=== PATIENT | female | born 1955 | race African-American/Black ===

== ENCOUNTER 2020-02-09 07:26 | Outpatient (CLI) | payer MEDICARE, SELFPAY ==
--- NOTE | ~2020-02-09 | MM_ITS ---
EXAMINATION: MM screening carlo BI w jc HISTORY: Screening TECHNIQUE: Craniocaudal and mediolateral oblique 3-D tomosynthesis images were obtained and synthetic 2-D images were generated. CAD analysis was submitted and interpreted. COMPARISON: Comparison to multiple prior studies sequentially, with oldest reviewed study dated 01/10. BREAST PARENCHYMAL COMPOSITION: There are scattered areas of fibroglandular density. FINDINGS: There is no evidence of suspicious mass, calcification, or architectural distortion to sugg est malignancy in either breast. There has been no suspicious interval change. IMPRESSION: 1. No mammographic evidence of malignancy. 2. Recommend routine screening mammography in one year. BI-RADS Category 1: Negative Reviewed, dictated and finalized at location A.
--- NOTE | ~2020-02-09 | DEXA_ITS ---
Bone Density Report Name: Kailyn Funes Age: 64 Sex: Female Ethnicity: Black Date of : 1955 Indication: postmenopausal; height loss; hysterectomy; Referring Provider: BILLIE FARRELL Study: Bone densitometry was performed. Exam Date: February 09, 2020 Accession number: [id number] Bone Density: Region BMD T-score Z-score Classification AP Spine (L1-L4) 1.090 0.4 1.5 Normal Femoral Neck (Left) 0.980 1.2 1.5 Normal Total Hip (Left) 1.030 0.7 1.0 Normal Total Hip Bilateral Avg 1.068 1.0 1.3 Normal Femoral Neck (Right) 1.059 1.9 2.1 Normal Total Hip (Right) 1.106 1.3 1.5 Normal World Health Organization criteria for BMD impression classify patients as: Normal (T-score at or above -1.0), Osteopenia (T-score between -1.0 and -2.5), or Osteoporosis (T-score at or below -2.5). 10-year Fracture Risk: FRAX not reported because: All T-scores for Spine Total, Hip Total, Femoral Neck at or above -1.0 Previous Exams: Region Exam Age BMD T-score BMD Change BMD Change Date g/cm2 vs Baseline vs Previous AP Spine(L1-L4) 02/09/2020 64 1.090 0.4 -0.021(-1.9%)# -0.071(-6.1%)* 01/10/2015 59 1.161 1.0 0.049(4.4%)# 0.049(4.4%)# 11/17/2008 53 1.111 0.6 Total Hip(Left) 02/09/2020 64 1.030 0.7 0.080(8.4%)# 0.018(1.8%) 01/10/2015 59 1.012 0.6 0.062(6.5%)# 0.062(6.5%)# 11/17/2008 53 0.950 0.1 Total Hip(Right) 02/09/2020 64 1.106 1.3 0.136(14.0%)# 0.041(3.9%)* 01/10/2015 59 1.064 1.0 0.095(9.8%)# 0.095(9.8%)# 11/17/2008 53 0.970 0.2 *Denotes significance at 95% confidence level, LSC for AP Spine = 0.022 g/cm2, LSC for Total Hip = 0.027 g/cm2 Clinical Information Provided by Patient: Has used the following medications: Vitamin D Has the following medical conditions: Hysterectomy Patient maximum height was 69 Menopause Age: 29 Drinks caffeinated beverages Onset of menses at age 9 Number of children 3 Impression: The patient has normal bone mass. The BMD for the AP Spine(L1-L4) decreased, changing by -6.1% since the last DXA exam. Discussion: BONE DENSITY IS ABOVE THE MINIMUM DESIRABLE LEVEL AT ALL SKELETAL SITES TESTED. This patient?s bone mineral density is above the minimum desirable level (T-score -1.0 or better) at all sites measured. The patient should follow a healthful lifestyle (good nutrition with adequate calcium and vitamin D, and appropriate weight-bearing exercise). Donita
== END 2020-02-09 07:27 | disposition home or self-care (01) ==
PROVIDERS: PCP Nurse Practitioner Adult Health; Visit Provider Obstetrics & Gynecology
DX: Z12.31 Encounter for screening mammogram for malignant neoplasm of breast (principal); Z13.820 Encounter for screening for osteoporosis
CPT/HCPCS: 77063; 77067; 77080

== ENCOUNTER 2020-03-19 08:19 | Outpatient (CLI) | payer MEDICARE, SELFPAY ==
--- NOTE | 2020-03-22 12:23 | WPDPFTINT ---
PFT Interpretation PFT Interpretation: DOS: 03/19/2020 REQUESTING: Dr. Banuelos REASON FOR TESTING: restrictive lung disease, decreased diffusion PULMONARY FUNCTION TESTS Results are reliable and reproducible. Spirometry: FEV1 is 73%< mildly decreased, FVC 66% mildly reduced. FEV1% is normal showing no obstruction. No change with bronchodilator. Lung volumes: TLC 66%, mildly decreased, consistent with mild restriction. RV is 65%, and RV/TLC is normal. No air trapping. Airway resistance is 134%. mildly increased. Diffusion: DLCO 56%, moderately decreased. Flow volume loop: Restrictive pattern. IMPRESSION: Mild restrictive ventilatory impairment with moderate diffusion impairment. No obstruction is noted. This can be seen in ILD and pneumonitis. Results are similar to PFT on 12/29/2017 with this test showing no obstruction. TLC was 72%, now 66%, air trapping was present on the previous test with more airway resistance. Same DLCO. Nahomy Banuelos MD
--- NOTE | 2020-03-22 12:41 | WPDSIXMINUTE ---
Six Minute Walk Six Minute Walk: DOS: 03/19/2020 REQUESTING: Dr Banuelos REASON FOR TESTING: Restrictive lung disease and decreased diffusion SIX MINUTE WALK This test was conducted per ATS guidelines. The initial saturation was was 96%, pulse 70. She walked for 6 minutes without stopping with saturation sustained 95% and above. Distance walked is 1100 feet/335 meters. Pulse maximum is 88. IMPRESSION: Normal walk study without desaturation. No need for supplemental oxygen.
== END 2020-03-19 08:20 | disposition home or self-care (01) ==
PROVIDERS: PCP Nurse Practitioner Adult Health; Visit Provider Internal Medicine Critical Care Medicine
DX: J98.4 Other disorders of lung (principal); R94.2 Abnormal results of pulmonary function studies
CPT/HCPCS: 94060; 94618; 94726; 94729

== ENCOUNTER 2020-04-01 06:51 | Outpatient (CLI) | payer MEDICARE, SELFPAY ==
--- NOTE | ~2020-04-01 | CT_ITS ---
EXAMINATION: CT chest high resolution wo ms DATE: 04/01/2020 07:11 INDICATION: Interstitial lung disease TECHNIQUE: Computed tomography (CT) of the chest was performed without intravenous contrast. The dose -length product was 291.17 mGy-cm. Automated exposure control and iterative reconstruction technique were employed. COMPARISON: CT dated 09/29/2012 FINDINGS: No significant pleural or pericardial effusion. There are calcified mediastinal lymph nodes consistent with chronic granulomatous disease. Heart size normal. Small hyperdense cyst of the right kidney. Otherwise, upper abdomen is unremarkable. Blebs are noted in the right lower lobe. No pneumo thorax. No pulmonary nodules or masses. No focal airspace consolidation. Calcified granuloma in the l ingula. No endobronchial lesions. No acute osseous abnormality. IMPRESSION: 1. No acute cardiopulmonary disease. No significant interstitial lung disease. Reviewed, dictated and finalized at location B.
== END 2020-04-01 06:52 | disposition home or self-care (01) ==
PROVIDERS: PCP Nurse Practitioner Adult Health; Visit Provider Internal Medicine Critical Care Medicine
DX: R94.2 Abnormal results of pulmonary function studies (principal); J98.4 Other disorders of lung
CPT/HCPCS: 71250

== ENCOUNTER 2020-11-17 13:28 | Emergency (ER) | payer MEDICARE, SELFPAY ==
--- NOTE | ~2020-11-17 | XR_ITS ---
XR chest 2V DATE: 11/17/2020 14:09 INDICATION: Chest pain, shortness of breath TECHNIQUE: PA and lateral views COMPARISON: 06/14/2015 2 view chest FINDINGS: There is cardiomegaly. There is mild aortic unfolding. No hilar or mediastinal enlargement. No pulmonary infiltrate or consolidation, pleural effusion or pulmonary vascular congestion or pneum othorax. IMPRESSION: Cardiomegaly No active pulmonary disease Reviewed, dictated and finalized at location A.
--- NOTE | ~2020-11-17 | CT_ITS ---
EXAMINATION: CTA chest PE protocol DATE: 11/17/2020 15:44 INDICATION: Shortness of breath. Left-sided chest pain. TECHNIQUE: Computed tomography (CT) pulmonary angiogram of the chest was performed with 100 mL Omnipa que-350 intravenous contrast. Additional 3D reconstructions utilizing coronal maximum intensity proje ction (MIP) were performed. Automated exposure control and iterative reconstruction technique were em ployed. The dose-length product was 623.15 mGy-cm. COMPARISON: None FINDINGS: Excellent contrast opacification of the pulmonary arteries. There is mild streak artifact from dense contrast in the superior vena cava and right atrium. Mild scattered respiratory motion artifact which does not significantly limit evaluation. No pulmonary embolism. Large pneumatocele in the right lowe r lobe. No pneumonia, pulmonary edema or other pulmonary infiltrates, pleural effusion or pneumothora x. Heart size is normal. No pericardial effusion. Thoracic aorta is normal in caliber with no dissect ion. There is reflux contrast in the inferior vena cava and hepatic veins which can be seen with tric uspid regurgitation. No pathologically enlarged thoracic lymphadenopathy. Mild osteoarthritis at the bilateral shoulders. IMPRESSION: 1. No pulmonary embolism or other acute cardiopulmonary disease. Reviewed, dictated and finalized at location A.
--- NOTE | 2020-11-17 13:30 | ECG_ITS ---
Measurements Intervals [place] Rate: 70 P: -37 FL: 139 QRS: -15 QRSD: 97 T: -48 QT: 410 QTc: 444 Interpretive Statements SINUS OR ECTOPIC ATRIAL RHYTHM VENTRICULAR PREMATURE COMPLEX INCOMPLETE RIGHT BUNDLE BRANCH BLOCK VOLTAGE CRITERIA FOR LVH BORDERLINE ST-T WAVE ABNORMALITY- ANTEROLAT/INF LEADS BASELINE WANDER- I, II, III, AVR, AVL, AVF, V1-V6 BORDERLINE ECG Electronically Signed On 11-17-2020 19:19:48 CDT by Piero Kaur D.O.
[2020-11-17 13:33] VITALS: BP 192/100; PULSE 69; RESP 19; TEMP 36.6; O2SAT 100
[2020-11-17 13:36] VITALS: PULSE 72; RESP 20; O2SAT 100
[2020-11-17 13:40] VITALS: PULSE 67
[2020-11-17] MEDS: ASPIRIN 81 MG CHEWABLE TABLET 324 MG PO (13:45)
[2020-11-17 13:47] VITALS: BP 152/53; PULSE 64; RESP 16; O2SAT 100
[2020-11-17 13:49] LABS: Basophils Percent Auto 0.2 % (0.2-1.2); Eosinophils Absolute Auto 0.1 K/mm3 (0-0.3); Eosinophils Percent Auto 0.8 % (0-4.4); Hematocrit 40.4 % (37.0-47.0); Hemoglobin 13.6 g/dL (12.0-15.0); Immature Granulocyte Absolute 0.02 K/mm3 (0.00-0.031); Immature Granulocyte Percent A 0.2 % (0-0.5); Lymphocytes Absolute Auto 3.11 K/mm3 (0.9-3.2); Lymphocytes Percent Auto 33.7 % (18.3-44.2); Mean Corpuscular HGB Conc 33.7 g/dl (32-36); Mean Corpuscular Hemoglobin 28.3 pg (26-34); Mean Platelet Volume 9.8 fl (7.4-10.4); Monocytes Absolute Auto 0.7 K/mm3 (0.1-0.6); Monocytes Percent Auto 7.7 % (2.6-8.5); Neutrophils Absolute Auto 5.3 K/mm3 (1.3-6.7); Neutrophils Percent Auto 57.4 % (45.5-73.1); Platelet Count Result 281 k/mm3 (150-375); Red Blood Count 4.81 M/mm3 (4.2-5.4); Red Cell Distribution Width 15.1 % (11.5-14.5); White Blood Count 9.2 K/mm3 (4.5-10.0)
[2020-11-17 13:58] LABS: Anion Gap 3 mmol/L (8-16); Blood Urea Nitrogen 22 mg/dL (7-17); Calcium 9.1 mg/dL (8.4-10.2); Carbon Dioxide 33 mmol/L (22-30); Chloride 105 mmol/L (98-107); Estimated Glomerular Filt Rate 50; Glucose 183 mg/dL (65-105); Potassium 3.5 mmol/L (3.4-5.0); Sodium 141 mmol/L (137-145)
[2020-11-17 14:10] LABS: Troponin I < 0.012 ng/mL (0.000-0.034)
[2020-11-17 14:12] VITALS: PULSE 67; RESP 19; O2SAT 99
--- NOTE | 2020-11-17 14:12 | ED.GENADULT ---
HPI - General Adult General Chief complaint: Chest Pain Stated complaint: cp, sob Time Seen by Provider: 11/17/20 13:51 Source: patient History of Present Illness HPI narrative: Patient is a 65 y/o female complaining of midsternal chest pain starting 1 hour ago. She describes her pain as sharp with no radiation. There is no alleviating or exacerbating factor. She rates her pain as 8/10. She has also has some SOB. She has no cough or fever. Related Data Home Medications Medication Instructions Recorded Confirmed B-complex with vitamin C 1 tablet PO DAILY 02/15/20 allopurinol 300 mg tablet 300 mg PO DAILY 02/15/20 aspirin 81 mg tablet,delayed 81 mg PO DAILY 02/15/20 release carvedilol 25 mg tablet 25 mg PO Q12H 02/15/20 colesevelam 625 mg tablet 1,250 mg PO BID 02/15/20 empagliflozin 25 mg tablet 25 mg PO DAILY 02/15/20 enalapril maleate 20 mg tablet 20 mg PO BID 02/15/20 ergocalciferol (vitamin D2) 1,250 1,250 mcg PO MONTHLY 02/15/20 mcg (50,000 unit) capsule ezetimibe 10 mg tablet 10 mg PO DAILY 02/15/20 triamterene 37.5 1 cap PO DAILY 02/15/20 mg-hydrochlorothiazide 25 mg capsule Allergies Allergy/AdvReac Type Severity Reaction Status Date / Time atorvastatin Allergy Unknown Verified 12/01/17 10:00 metformin Allergy Unknown Verified 12/02/17 08:58 pioglitazone Allergy Unknown CHF Verified 12/02/17 08:59 rosuvastatin Allergy Unknown Verified 12/01/17 10:00 Review of Systems Constitutional: Constitutional: Denies chills, Denies fever(s), Denies headache(s) and Denies weakness Eyes: Eyes: Denies blurry vision ENT: Denies headache(s) and Denies neck pain Cardiovascular: Cardiovascular: Reports chest pain and Reports dyspnea Respiratory: Respiratory: Denies cough and Reports dyspnea Gastrointestinal: Gastrointestinal: Denies abdominal pain, Denies diarrhea, Denies nausea and Denies vomiting Genitourinary: Genitourinary: Denies hematuria and Denies dysuria Musculoskeletal: Musculoskeletal: Denies back pain and Denies neck pain Neurologic: Denies headache(s) and Denies weakness [facility] Past Medical History Medical History Decreased diffusion capacity Essential (primary) hypertension Restrictive lung disease Rhinitis Surgical History Surgical History Status post cataract extraction Left Family History Family History Mother Patient's mother is in good health Other Diabetes mellitus Family history of malignant neoplasm of breast Hypertension Social History Social History Smoking status: Never smoker Exam Const: General: no acute distress and well developed Orientation/consciousness: oriented to person, oriented to place, oriented to time and patient oriented x3 HENMT: Head: normocephalic Ears: external ears normal General nose exam: Normal external nose present Eyes: General: appearance normal, both eyes and all related structures Conjunctivae: conjunctivae normal Neck: Neck: normal visual inspection and full ROM Chest: Chest palpation & inspection: normal inspection of the chest and no tenderness Resp: Effort & Inspection: normal respiratory effort Auscultation: clear to auscultation bilaterally Cardio: Rate: regular rate Rhythm: regular rhythm GI: GI Palp: No abdominal tenderness and Yes Soft to palpation Skin: General skin exam: normal color and turgor normal Neuro: General: oriented to person, oriented to place, oriented to time and patient oriented x3 Cognition (Neuro): normal cognition Extrem: General: normal to inspection, full ROM and no pedal edema Psych: Appearance: grossly normal Mental Status: mental status grossly normal Affect: normal affect Course Reevaluation(s) Reevaluation #1: Rechecked. Patient states that she feels bett
[2020-11-17 14:21] LABS: INR 0.9; Prothrombin Time 12.3 Seconds (11.1-14.7)
[2020-11-17 14:23] LABS: Partial Thromboplastin Time 25.3 SECONDS (22.3-36.8)
[2020-11-17 14:29] LABS: D Dimer 1.37 ug/mL (<0.48)
--- NOTE | 2020-11-17 15:26 | PC.NURSE ---
Called to patient bedside, pt c/o feeling blood sugar is low and requesting something to eat. Bedside blood glucose performed and WNL. Pt given carlotta crackers and diet soda po. Dr. Domingo aware. Pt updated on care and needing 3 min troponin.
[2020-11-17 15:27] LABS: Glucose Point of Care 134 (65-105)
[2020-11-17 16:53] LABS: Troponin I < 0.012 ng/mL (0.000-0.034)
[2020-11-17 17:53] VITALS: BP 148/80; PULSE 61; RESP 20; O2SAT 100
== END 2020-11-17 17:54 | disposition home or self-care (01) ==
PROVIDERS: Emergency Provider Emergency Medicine; PCP Nurse Practitioner Adult Health
DX: R07.2 Precordial pain (principal); I10 Essential (primary) hypertension; J98.4 Other disorders of lung; Z98.42 Cataract extraction status, left eye; Z79.82 Long term (current) use of aspirin; I49.3 Ventricular premature depolarization; I45.10 Unspecified right bundle-branch block; R94.31 Abnormal electrocardiogram [ECG] [EKG]; I51.7 Cardiomegaly; R06.02 Shortness of breath
CPT/HCPCS: 36415; 71046; 71275; 80048; 82948; 84484; 85025; 85380; 85610; 85730; 93005; 99284; A9270; Q9967

== ENCOUNTER → 2020-12-14 03:52 | Outpatient (CLI) | payer MEDICARE, SELFPAY ==
[2020-12-14 19:46] LABS: SARS-CoV-2 RNA PCR Negative
== END ==
PROVIDERS: PCP Nurse Practitioner Adult Health; Visit Provider Internal Medicine Gastroenterology
DX: Z01.812 Encounter for preprocedural laboratory examination (principal); Z20.822 Contact with and (suspected) exposure to COVID-19
CPT/HCPCS: C9803; U0003; U0005

== ENCOUNTER 2020-12-18 01:52 | Day surgery (SDC) | payer MEDICARE, SELFPAY ==
[2020-12-13 17:20] VITALS: BMI 34.7
[2020-12-18 06:39] VITALS: BP 154/90; PULSE 72; RESP 18; TEMP 36.1; O2SAT 100
[2020-12-18] MEDS: LACTATED RINGERS 1,000 ML 150 ML IV CONT (06:51)
[2020-12-18 06:56] LABS: Glucose Point of Care 254 mg/dl (65-105)
--- NOTE | 2020-12-18 07:17 | WPDANESEPPF ---
Anes - Initial Pre Proc Eval Procedure: Operation Date: 12/18/20 07:30 Proposed Procedures p Esophagogastroduodenoscopy - Allan Nelson MD Date/Time: 12/18/20 07:17 Surgeon: Allan Nelson MD Pre Op Diagnosis: Dysphagia Patient Data Age: 65 Gender: F Height: 5 ft 8 in Weight: 105.8 kg Last Vital Signs Temp 97.0 F L 12/18/20 06:39 Pulse 72 12/18/20 06:39 Resp 18 12/18/20 06:39 BP 154/90 H 12/18/20 06:39 Pulse Ox 100 12/18/20 06:39 Allergies Allergy/AdvReac Type Severity Reaction Status Date / Time metformin Allergy Severe Diarrhea Verified 12/18/20 06:37 pioglitazone Allergy Severe CHF Verified 12/18/20 06:37 atorvastatin Allergy Intermediate Rash Verified 12/18/20 06:37 rosuvastatin Allergy Intermediate Muscle Pain Verified 12/18/20 06:37 tramadol [From Ultra] Allergy Rash Verified 12/18/20 06:37 Home Medications Medication Instructions Recorded Confirmed Type B-complex with vitamin C 1 tablet PO DAILY 02/15/20 12/13/20 History allopurinol 300 mg tablet 300 mg PO DAILY 02/15/20 12/13/20 History aspirin 81 mg tablet,delayed 81 mg PO DAILY 02/15/20 12/13/20 History release carvedilol 25 mg tablet 25 mg PO DAILY 02/15/20 12/13/20 History colesevelam 625 mg tablet 1,250 mg PO BID 02/15/20 12/13/20 History enalapril maleate 20 mg tablet 20 mg PO BID 02/15/20 12/13/20 History ergocalciferol (vitamin D2) 1,250 1,250 mcg PO MONTHLY 02/15/20 12/13/20 History mcg (50,000 unit) capsule ezetimibe 10 mg tablet 10 mg PO DAILY 02/15/20 12/13/20 History triamterene 37.5 1 cap PO DAILY 02/15/20 12/13/20 History mg-hydrochlorothiazide 25 mg capsule alprazolam 0.5 mg PO DAILY PRN 12/13/20 12/13/20 History empagliflozin [Jardiance] 10 mg PO DAILY 12/13/20 12/13/20 History insulin lispro [Humalog KwikPen See Rx Instructions .ROUTE .COMPLEX 12/13/20 12/13/20 History Insulin] montelukast 10 mg PO QPM 12/13/20 12/13/20 History Laboratory Tests 12/18/20 06:44 POC Capillary Glucose 254 mg/dl H mg/dl (65-105) Patient hx anesthesia problems: none Family hx anesthesia problems: none PMFSH Past Medical History Medical History Decreased diffusion capacity Essential (primary) hypertension Restrictive lung disease Rhinitis Surgical History Surgical History Status post cataract extraction Left Family History Family History Mother Patient's mother is in good health Other Diabetes mellitus Family history of malignant neoplasm of breast Hypertension Social History Social History Smoking status: Never smoker Alcohol intake: current Substance use: never Substance use type: does not use Living arrangements: with family Spiritual care concerns: No Anes - Eval Final PreProcedure Day of Procedure 12/18/20 07:17 Patient weight: obese Heart: regular rate and rhythm Lungs: clear to auscultation Airway: Mallampati scale class II Neurological: alert and oriented Last oral intake: >/= 8 hours ASA classification: III Emergent: no Anesthetic plan: proceed Anesthesia type and monitoring: general GIVS and standard monitoring Informed Consent: The patient's anesthetic plan and its attendant risks and benefits were discussed with the patient/family/POA. Questions were solicited and answers provided to the satisfaction of the patient/family/POA.
--- NOTE | 2020-12-18 07:41 | PM.HPGS ---
History of Present Illness History of Present Illness Consent: Risks, benefits, and alternatives have been discussed and questions answered. Patient agrees to proceed with procedure. Chief complaint: Dysphagia Narrative: Kailyn Funes is a 65 year old female with choking sensation, just recently started on famotidine Review of Systems Constitutional: Constitutional: Denies headache(s) and Denies weakness Eyes: Eyes: Denies blurry vision ENT: Reports Normal hearing present, Denies headache(s) and Denies neck pain Cardiovascular: Cardiovascular: Denies chest pain and Denies dyspnea Respiratory: Respiratory: Denies dyspnea Gastrointestinal: Gastrointestinal: Reports no additional gastrointestinal complaints Genitourinary: Genitourinary: Denies dysuria Musculoskeletal: Musculoskeletal: Denies neck pain Integumentary/Breasts: Skin/Breast: Denies dry skin Neurologic: Reports Normal hearing present, Denies headache(s) and Denies weakness Psychiatric: Psychiatric: Denies anxiety Endocrine: Endocrine: Denies change in body appearance Hematologic/Lymphatic: Hematologic/Lymphatic: Denies easy bleeding Allergic/Immunologic: Allergic/Immunologic: Denies urticaria PMFSH Past Medical History Medical History (Updated 12/18/20 @ 07:41 by Allan Nelson MD) Decreased diffusion capacity Dysphagia Essential (primary) hypertension Restrictive lung disease Rhinitis Surgical History Surgical History Status post cataract extraction Left Family History Family History Mother Patient's mother is in good health Other Diabetes mellitus Family history of malignant neoplasm of breast Hypertension Social History Social History Smoking status: Never smoker Alcohol intake: current Substance use: never Substance use type: does not use Living arrangements: with family Spiritual care concerns: No Meds Home Medications and Allergies Home Medications Medication Instructions Recorded Confirmed Type B-complex with vitamin C 1 tablet PO DAILY 02/15/20 12/13/20 History allopurinol 300 mg tablet 300 mg PO DAILY 02/15/20 12/13/20 History aspirin 81 mg tablet,delayed 81 mg PO DAILY 02/15/20 12/13/20 History release carvedilol 25 mg tablet 25 mg PO DAILY 02/15/20 12/13/20 History colesevelam 625 mg tablet 1,250 mg PO BID 02/15/20 12/13/20 History enalapril maleate 20 mg tablet 20 mg PO BID 02/15/20 12/13/20 History ergocalciferol (vitamin D2) 1,250 1,250 mcg PO MONTHLY 02/15/20 12/13/20 History mcg (50,000 unit) capsule ezetimibe 10 mg tablet 10 mg PO DAILY 02/15/20 12/13/20 History triamterene 37.5 1 cap PO DAILY 02/15/20 12/13/20 History mg-hydrochlorothiazide 25 mg capsule alprazolam 0.5 mg PO DAILY PRN 12/13/20 12/13/20 History empagliflozin [Jardiance] 10 mg PO DAILY 12/13/20 12/13/20 History insulin lispro [Humalog KwikPen See Rx Instructions .ROUTE .COMPLEX 12/13/20 12/13/20 History Insulin] montelukast 10 mg PO QPM 12/13/20 12/13/20 History Allergies Allergy/AdvReac Type Severity Reaction Status Date / Time metformin Allergy Severe Diarrhea Verified 12/18/20 06:37 pioglitazone Allergy Severe CHF Verified 12/18/20 06:37 atorvastatin Allergy Intermediate Rash Verified 12/18/20 06:37 rosuvastatin Allergy Intermediate Muscle Pain Verified 12/18/20 06:37 tramadol [From Ultram] Allergy Rash Verified 12/18/20 06:37 Vital Signs Vital Signs - 24 hr 12/18/20 06:39 Temperature 97.0 F L Pulse Rate 72 Respiratory Rate 18 Blood Pressure 154/90 H Pulse Oximetry 100 Exam Const: General: comfortable and no acute distress HENMT: General nose exam: Normal nares present Eyes: General: appearance normal, both eyes and all related structures Neck: Neck: no JVD Resp: Auscultation: clear to auscultation bi
[2020-12-18 07:44] VITALS: BP 127/84; PULSE 69; RESP 20; O2SAT 98
[2020-12-18 07:54] VITALS: BP 137/75; PULSE 63; RESP 26; O2SAT 100
[2020-12-18 08:04] VITALS: BP 153/98; PULSE 64; RESP 26; O2SAT 100
== END 2020-12-18 08:13 | disposition home or self-care (01) ==
PROVIDERS: PCP Nurse Practitioner Adult Health; Visit Provider Internal Medicine Gastroenterology
PROC: 0DJ08ZZ Inspection of Upper Intestinal Tract, Via Natural or Artificial Opening Endoscopic (ICD-10-PCS; CPT 43235; principal; 2020-12-18 07:30)
DX: R13.10 Dysphagia, unspecified (principal); K44.9 Diaphragmatic hernia without obstruction or gangrene; K29.50 Unspecified chronic gastritis without bleeding; I10 Essential (primary) hypertension; J45.909 Unspecified asthma, uncomplicated; E66.9 Obesity, unspecified; Z68.35 Body mass index [BMI] 35.0-35.9, adult; Z79.82 Long term (current) use of aspirin; Z79.4 Long term (current) use of insulin; Z79.84 Long term (current) use of oral hypoglycemic drugs
CPT/HCPCS: 43239; 82948; 87081; 88305; C9803; J2704; J7120; U0003; U0005

== ENCOUNTER 2021-01-03 08:19 | Outpatient (CLI) | payer MEDICARE, SELFPAY ==
--- NOTE | 2021-01-03 | EST_ITS ---
Patient Info Name: Kailyn Funes Age: 65 years : 1955 Gender: Female Ht: 68 in Wt: 236 lbs BSA: 2.31 m2 Exam Date: 01/03/2021 9:44 AM Exam Location: [facility] Stress Patient Status: Outpatient Admit Date: 01/03/2021 Staff Ordering Physician: Erik, Yaa REYNOSO Attending Provider: Erik, Yaa REYNOSO Exercise Technologist: Pilar Young RDCS Exercise Physician: Piero Kaur DO Exam Type: CA stress clara w NM Study Info Indications R07.89 - Other chest pain A regadenoson stress test was performed. Summary 1. 1. Negative lexiscan stress test for ischemic ST changes by ECG criteria. 2. 2. Baseline hypertension. 3. 3. Nuclear scan to follow and will be reported separately. Please correlate with it. 4. 4. Patient informed of the above results. Protocol: Lexiscan Stress ECG Details Stage: REST Duration (min): 3 min : 41 sec HR (bpm): 58 SBP (mmHg): 148 DBP (mmHg): 82 Stage: REST Duration (min): 6 min : 44 sec HR (bpm): 62 SBP (mmHg): 148 DBP (mmHg): 82 Stage: STAGE 1 Duration (min): 1 min : 0 sec HR (bpm): 78 SBP (mmHg): 166 DBP (mmHg): 89 Stage: RECOVERY Duration (min): 1 min : 0 sec HR (bpm): 75 SBP (mmHg): 158 DBP (mmHg): 88 Stage: RECOVERY Duration (min): 2 min : 0 sec HR (bpm): 74 SBP (mmHg): 158 DBP (mmHg): 88 Stage: RECOVERY Duration (min): 3 min : 0 sec HR (bpm): 70 SBP (mmHg): 134 DBP (mmHg): 81 Stage: RECOVERY Duration (min): 4 min : 0 sec HR (bpm): 71 SBP (mmHg): 139 DBP (mmHg): 83 Stage: RECOVERY Duration (min): 4 min : 42 sec HR (bpm): 75 SBP (mmHg): 144 DBP (mmHg): 84 Rest HR: 62 bpm Peak HR: 80 bpm Rest Sys BP: 148 mmHg Peak Sys BP: 166 mmHg Max Pred HR: 153 bpm % Max Pred HR: 52 % Target HR: 130 bpm Max RPP: 13,280 bpm*mmHg Termination Reason: Completed protocol Cardiac Symptoms: Shortness of breath Total Time: 1 min : 0 sec Rest [place] BP: 82 mmHg Peak [place] BP: 89 mmHg Total Dose: 0.4 mg Resting ECG Sinus rhythm. Stress ECG No ST changes. Arrhythmias None. Report Signatures
--- NOTE | ~2021-01-03 | NM_ITS ---
EXAMINATION: NM clara stress w perfusion DATE: 01/03/2021 12:42 INDICATION: Chest pain TECHNIQUE: Rest images were obtained following intravenous administration of 9.7 mCi Tc99m tetrofosmi n (Myoview). The patient was infused intravenously with Lexiscan (Regadenoson). Then, 30.3 mCi Tc99m tetrofosmin (Myoview) was administered intravenously, and stress images were obtained. Data was recon structed into short axis and horizontal and vertical long axis SPECT images. Gated SPECT images were also obtained. COMPARISON: None. FINDINGS: Nonreversible mild perfusion defect involving the mid inferolateral and basilar inferolater al segments. There is normal left ventricular chamber size, wall motion and ejection fraction. Left ventricular ejection fraction measures 57%. IMPRESSION: 1. Mild nonreversible perfusion defect consistent with infarct involving the mid inferolateral and ba silar inferolateral segments. No reversible ischemia.. 2. Left ventricular ejection fraction measuring 57%. Reviewed, dictated and finalized at location A. IMPRESSION: 1. Mild nonreversible perfusion defect consistent with infarct involving the mi d inferolateral and basilar inferolateral segments. No reversible ischemia.. 2. Left ventricular ejection fraction measuring 57%.
== END 2021-01-03 08:20 | disposition home or self-care (01) ==
LOC: ANHIMG 08:23
PROVIDERS: PCP Nurse Practitioner Adult Health; Visit Provider Nurse Practitioner Adult Health
DX: R07.89 Other chest pain (principal)
CPT/HCPCS: 78452; 93017; A9502

== ENCOUNTER 2021-02-10 07:09 | Outpatient (CLI) | payer MEDICARE, SELFPAY ==
--- NOTE | ~2021-02-10 | MM_ITS ---
EXAMINATION: MM screening carlo BI w jc HISTORY: Screening mammogram TECHNIQUE: Craniocaudal and mediolateral oblique 3-D tomosynthesis images were obtained and synthetic 2-D images were generated. CAD analysis was submitted and interpreted. COMPARISON: 02/09/2020, 01/23/2019, 01/20/2018 bilateral digital screening mammogram examinations BREAST PARENCHYMAL COMPOSITION: The breasts are almost entirely fatty. FINDINGS: There is no evidence of suspicious mass, calcification, or architectural distortion to sugg est malignancy in either breast. There has been no suspicious interval change. IMPRESSION: 1. No mammographic evidence of malignancy. 2. Recommend routine screening mammography in one year. BI-RADS Category 1: Negative Reviewed, dictated and finalized at location A.
== END 2021-02-10 07:10 | disposition home or self-care (01) ==
LOC: ANHIMG 07:11
PROVIDERS: PCP Nurse Practitioner Adult Health; Visit Provider Obstetrics & Gynecology
DX: Z12.31 Encounter for screening mammogram for malignant neoplasm of breast (principal)
CPT/HCPCS: 77063; 77067

== ENCOUNTER 2022-03-13 07:44 | Outpatient (CLI) | payer MEDICARE, SELFPAY ==
--- NOTE | ~2022-03-13 | MM_ITS ---
EXAMINATION: MM screening carlo BI w jc HISTORY: Screening TECHNIQUE: Craniocaudal and mediolateral oblique 3-D tomosynthesis images were obtained and synthetic 2-D images were generated. CAD analysis was submitted and interpreted. COMPARISON: Comparison to multiple prior studies sequentially, with oldest reviewed study dated 01/12. BREAST PARENCHYMAL COMPOSITION: Breast composed of scattered areas of fibroglandular density FINDINGS: There is no evidence of suspicious mass, calcification, or architectural distortion to sugg est malignancy in either breast. There has been no suspicious interval change. IMPRESSION: 1. No mammographic evidence of malignancy. 2. Recommend routine screening mammography in one year. BI-RADS Category 1: Negative Reviewed, dictated and finalized at location A.
== END 2022-03-13 07:45 | disposition home or self-care (01) ==
LOC: ANHIMG 07:45
PROVIDERS: PCP Nurse Practitioner Adult Health; Visit Provider Obstetrics & Gynecology Gynecology
DX: Z12.31 Encounter for screening mammogram for malignant neoplasm of breast (principal)
CPT/HCPCS: 77063; 77067

== ENCOUNTER 2023-04-05 07:51 | Emergency (ER) | payer MEDICARE, SELFPAY ==
--- NOTE | ~2023-04-05 | CT_ITS ---
Clinical Indication: Shortness of breath, cough CT Scan of the Chest with Contrast: Technique: Contiguous sections were acquired throughout the chest after intravenous administration of 100 cc of Omnipaque 350. Dose reduction technique was used on this scan by utilizing automated expos ure control and iterative reconstruction technique. The dose-length product (DLP) was 733.14 mGy-cm. COMPARISON: 11/17/2020 Findings: There is no evidence of any significant mediastinal, hilar or axillary lymphadenopathy. There is no f illing defect in the pulmonary arterial tree to suggest pulmonary embolus. There is no evidence of ao rtic dissection or aneurysm. There is no evidence of pleural or pericardial effusion. Pneumatocele noted at the right lower lobe, unchanged. No pulmonary nodules or infiltrates are noted. Images through the upper abdomen reveal no abnormalities. Impression: No evidence of pulmonary embolus, aortic dissection, or aortic aneurysm. Pneumatocele or cyst at the right lower lobe, unchanged. Reviewed, dictated and finalized at [facility]. Impression: No evidence of pulmonary embolus, aortic dissection, or aortic aneurysm. Pneumatocele or cyst at the right lower lobe, unchanged.
--- NOTE | ~2023-04-05 | XR_ITS ---
Clinical Indication: Shortness of breath AP and lateral views of the chest: Comparison: 11/17/2020 Findings: The lungs are clear, without evidence of focal consolidation or pleural effusion. Cardiome diastinal silhouette is stable. Bones and soft tissues are unremarkable. Impression: Clear lungs. Reviewed, dictated and finalized at location . Impression: Clear lungs.
--- NOTE | ~2023-04-05 | US_ITS ---
EXAMINATION: US venous doppler [facility] DATE: 04/05/2023 10:04 INDICATION: Left lower limb pain and swelling TECHNIQUE: Grayscale ultrasound images without and with compression and Doppler ultrasound images of the left lower extremity veins were obtained. COMPARISON: None. FINDINGS: The visualized portions of left common femoral vein, profunda (deep) femoral vein, femoral vein, popl iteal vein, peroneal veins, posterior tibial veins, gastrocnemius vein and greater saphenous vein out flow are patent. IMPRESSION: 1. No deep venous thrombosis in the left lower limb. Reviewed, dictated and finalized at location A.
[2023-04-05 08:01] VITALS: BP 183/91; PULSE 79; RESP 19; TEMP 36.6; O2SAT 100
--- NOTE | 2023-04-05 08:07 | ECG_ITS ---
Measurements Intervals [place] Rate: 71 P: 24 [place]: 170 QRS: -21 QRSD: 102 T: 36 QT: 402 QTc: 439 Interpretive Statements SINUS RHYTHM LEFT VENTRICULAR HYPERTROPHY AND ST-T CHANGE BORDERLINE T WAVE ABNORMALITY- INFERIOR LEADS BASELINE WANDER- V4-V5 BORDERLINE ECG COMPARED TO ECG 11/17/2020 13:39:13 NO SIGNIFICANT CHANGES Electronically Signed On 04-05-2023 8:20:49 CDT by Piero Kaur D.O.
--- NOTE | 2023-04-05 08:12 | ED.SOB ---
HPI - SOB/Dyspnea General Chief Complaint: Shortness of Breath/Dyspnea Stated Complaint: SOB Left leg swelling Time Seen by Provider: 04/05/23 07:59 History of Present Illness HPI Narrative: This is a 67-year-old female, with past history of hypertension, diabetes, who presents emergency department complaining of shortness of breath and left leg swelling for the past day. The patient states she has had leg swelling before, but not previously isolated to one leg. She complains of dyspnea on exertion and diffuse myalgias. She also complains of dry, nonbloody cough. She states she was exposed to a [id number] who tested positive for COVID. Related Data Home Medications Medication Instructions Recorded Confirmed B-complex with vitamin C (Super B 1 tablet PO DAILY 02/15/20 02/12/23 Complex-Vitamin C tablet) allopurinol 300 mg tablet 300 mg PO DAILY 02/15/20 02/12/23 aspirin 81 mg tablet,delayed 81 mg PO DAILY 02/15/20 02/12/23 release (Adult Aspirin Regimen) carvedilol 25 mg tablet 25 mg PO DAILY 02/15/20 02/12/23 colesevelam 625 mg tablet (WelChol) 1,250 mg PO BID 02/15/20 02/12/23 enalapril maleate 20 mg tablet 20 mg PO BID 02/15/20 02/12/23 ergocalciferol (vitamin D2) 1,250 1,250 mcg PO MONTHLY 02/15/20 02/12/23 mcg (50,000 unit) capsule ezetimibe 10 mg tablet 10 mg PO DAILY 02/15/20 02/12/23 triamterene 37.5 1 cap PO DAILY 02/15/20 02/12/23 mg-hydrochlorothiazide 25 mg capsule empagliflozin 10 mg tablet 10 mg PO DAILY 12/13/20 02/12/23 (Jardiance) insulin lispro 200 unit/mL (3 mL) See Rx Instructions .Route .COMPLEX 12/13/20 02/12/23 subcutaneous pen (Humalog KwikPen U-200 Insulin) colesevelam 625 mg tablet (WelChol) 1,250 mg PO BID 04/05/23 04/05/23 ezetimibe 10 mg tablet 10 mg PO DAILY 04/05/23 04/05/23 Allergies Allergy/AdvReac Type Severity Reaction Status Date / Time metformin Allergy Severe Diarrhea Verified 02/12/23 08:32 pioglitazone Allergy Severe CHF Verified 02/12/23 08:32 atorvastatin Allergy Intermediate Rash Verified 02/12/23 08:32 rosuvastatin Allergy Intermediate Muscle Pain Verified 02/12/23 08:32 tramadol [From Ultram] Allergy Rash Verified 02/12/23 08:32 Review of Systems Review of Systems: CONSTITUTIONAL: Denies fever, chills, or sweats. CARDIOVASCULAR: Denies chest pain, palpitations, or edema. RESPIRATORY: Dry, nonbloody cough, shortness of breath GASTROINTESTINAL: Mild abdominal pain with constipation unable to pass gas denies nausea, vomiting, or diarrhea. GENITOURINARY: Denies dysuria or hematuria. SKIN: Denies rash or itching. MUSCULOSKELETAL: Diffuse myalgias denies back pain, joint pain, NEUROLOGIC: Denies headache, numbness, dizziness, or weakness. PSYCHIATRIC: Denies anxiety or depression. [facility] Past Medical History Medical History CKD (chronic kidney disease) COPD (chronic obstructive pulmonary disease) Decreased diffusion capacity Diabetes Dysphagia Essential (primary) hypertension ERIN (obstructive sleep apnea) Restrictive lung disease Rhinitis Surgical History Surgical History Status post cataract extraction Left Family History Family History Mother Patient's mother is in good health Other Diabetes mellitus Family history of malignant neoplasm of breast Hypertension Social History Social History Smoking status: Never smoker Alcohol intake: current Substance use: never Substance use type: does not use Lack of Transportation: No Lack of Food: Never True Current Housing: I Have Housing Concerned About Future Housing: No Difficulty Paying Gas/Electric Bills: No Difficulty Paying for Meds: No Currently Unemployed: No Education: Bachelor's Degree Difficulty w/ Childcare or Family Care: No [place]
[2023-04-05 08:18] LABS: Basophils Absolute Auto 0.1 K/mm3 (0.0-0.1); Basophils Percent Auto 0.5 % (0.2-1.2); Eosinophils Absolute Auto 0.2 K/mm3 (0-0.3); Eosinophils Percent Auto 1.7 % (0-4.4); Hematocrit 40.9 % (37.0-47.0); Hemoglobin 13.6 g/dL (12.0-15.0); Immature Granulocyte Absolute 0.04 K/mm3 (0.00-0.031); Immature Granulocyte Percent A 0.4 % (0-0.5); Lymphocytes Absolute Auto 3.76 K/mm3 (0.9-3.2); Lymphocytes Percent Auto 33.9 % (18.3-44.2); Mean Corpuscular HGB Conc 33.3 g/dl (32-36); Mean Corpuscular Hemoglobin 28.9 pg (26-34); Mean Platelet Volume 9.8 fl (7.4-10.4); Monocytes Absolute Auto 1.2 K/mm3 (0.1-0.6); Monocytes Percent Auto 10.6 % (2.6-8.5); Neutrophils Absolute Auto 5.9 K/mm3 (1.3-6.7); Neutrophils Percent Auto 52.9 % (45.5-73.1); Platelet Count Result 270 k/mm3 (150-375); Red Cell Distribution Width 15.4 % (11.5-14.5); White Blood Count 11.1 K/mm3 (4.5-10.0)
[2023-04-05 08:27] LABS: Prothrombin Time 13.3 Seconds (11.1-14.7)
[2023-04-05 08:28] LABS: Alanine Aminotransferase 57 U/L (6-35); Albumin Level 4.5 g/dL (3.5-5.1); Alkaline Phosphatase 79 U/L (38-126); Anion Gap 7 mmol/L (8-16); Aspartate Amino Transferase 66 U/L (14-36); Bilirubin,Total 0.9 mg/dL (0.2-1.3); Blood Urea Nitrogen 32 mg/dL (7-17); Carbon Dioxide 31 mmol/L (22-30); Chloride 103 mmol/L (98-107); Estimated CRCL calculation 41 ml/min; Estimated Glomerular Filt Rate 42; Glucose 84 mg/dL (65-110); Partial Thromboplastin Time 25.1 SECONDS (22.3-36.8); Sodium 141 mmol/L (137-145)
[2023-04-05 08:40] LABS: NT Pro B Type Natriuretic Pept 146 pg/mL (19.9-100); Troponin I < 0.012 ng/mL (0.000-0.034)
[2023-04-05 08:52] LABS: Influenza A QL RT-PCR Negative (Negative); Influenza B QL RT-PCR Negative (Negative); SARS-CoV-2 RNA PCR Negative (Negative)
[2023-04-05] MEDS: POTASSIUM CHLORIDE 20 MEQ ER TABLET 40 MEQ PO (09:29)
[2023-04-05 11:47] LABS: Troponin I < 0.012 ng/mL (0.000-0.034)
[2023-04-05 12:23] VITALS: BP 180/87; PULSE 72; RESP 16; O2SAT 97
== END 2023-04-05 12:25 | disposition home or self-care (01) ==
PROVIDERS: Emergency Provider Preventive Medicine Aerospace Medicine; PCP Family Medicine
DX: R06.00 Dyspnea, unspecified (principal); Z20.822 Contact with and (suspected) exposure to COVID-19; J44.9 Chronic obstructive pulmonary disease, unspecified; E11.22 Type 2 diabetes mellitus with diabetic chronic kidney disease; I12.9 Hypertensive chronic kidney disease with stage 1 through stage 4 chronic kidney disease, or unspecified chronic kidney disease; N18.9 Chronic kidney disease, unspecified; G47.33 Obstructive sleep apnea (adult) (pediatric); Z98.42 Cataract extraction status, left eye; Z79.4 Long term (current) use of insulin; Z79.82 Long term (current) use of aspirin; Z79.84 Long term (current) use of oral hypoglycemic drugs; I51.7 Cardiomegaly; R94.31 Abnormal electrocardiogram [ECG] [EKG]
CPT/HCPCS: 36415; 71046; 71275; 80053; 83880; 84484; 85025; 85610; 85730; 87636; 93005; 93971; 99284; A9270; Q9967

== ENCOUNTER 2023-04-27 03:00 | Emergency (ER) | payer MEDICARE, SELFPAY ==
[2023-04-27] VITALS (8 sets, daily range): BP systolic 147–184; BP diastolic 55–91; PULSE 51–70; RESP 15–27; TEMP 36.4; O2SAT 96–100
--- NOTE | ~2023-04-27 | XR_ITS ---
EXAMINATION: XR chest 1V portable DATE: 04/27/2023 03:50 INDICATION: Chest pain. TECHNIQUE: A single frontal view of the chest was obtained. COMPARISON: Chest 2 views 04/05/2023, chest CT 04/05/2023 FINDINGS: There is no pneumonia, pleural effusion, or pneumothorax. Cardiomegaly is noted. IMPRESSION: 1. Cardiomegaly. Reviewed, dictated and finalized at location A. IMPRESSION: 1. Cardiomegaly.
--- NOTE | 2023-04-27 03:06 | ECG_ITS ---
Measurements Intervals [place] Rate: 60 P: 53 [place]: 171 QRS: -25 QRSD: 97 T: -62 QT: 429 QTc: 430 Interpretive Statements SINUS RHYTHM LOW QRS VOLTAGE IN PRECORDIAL LEADS [QRS DEFLECTION < 1.0 mV IN CHEST LEADS] POSSIBLE LEFT VENTRICULAR HYPERTROPHY [VOLTAGE CRITERIA PLUS LAE OR QRS WIDENING] COMPARED TO ECG 04/05/2023 08:06:00 NO SIGNIFICANT CHANGES Electronically Signed On 04-27-2023 16:01:34 CDT by Teri Reed M.D.
--- NOTE | 2023-04-27 03:17 | ECG_ITS ---
Measurements Intervals [place] Rate: 57 P: 76 [place]: 191 QRS: -13 QRSD: 98 T: -48 QT: 454 QTc: 445 Interpretive Statements SINUS BRADYCARDIA LOW QRS VOLTAGE IN PRECORDIAL LEADS [QRS DEFLECTION < 1.0 mV IN CHEST LEADS] POSSIBLE LEFT VENTRICULAR HYPERTROPHY [VOLTAGE CRITERIA PLUS LAE OR QRS WIDENING] T-WAVE ABNORMALITY IN THE INFEROLATERAL LEADS COMPARED TO ECG 04/27/2023 03:09:03 SINUS BRADYCARDIA NOW PRESENT Electronically Signed On 04-27-2023 16:09:10 CDT by Teri Reed M.D.
[2023-04-27] MEDS: ASPIRIN 81 MG CHEWABLE TABLET 324 MG PO (03:27)
[2023-04-27] MEDS: NITROGLYCERIN SL 0.4 MG TABLET SUBLINGUAL (03:28)
[2023-04-27 03:30] LABS: Basophils Percent Auto 0.4 % (0.2-1.2); Eosinophils Absolute Auto 0.1 K/mm3 (0-0.3); Eosinophils Percent Auto 1.5 % (0-4.4); Hematocrit 37.6 % (37.0-47.0); Hemoglobin 12.6 g/dL (12.0-15.0); Immature Granulocyte Absolute 0.02 K/mm3 (0.00-0.031); Immature Granulocyte Percent A 0.2 % (0-0.5); Lymphocytes Absolute Auto 2.66 K/mm3 (0.9-3.2); Lymphocytes Percent Auto 27.9 % (18.3-44.2); Mean Corpuscular HGB Conc 33.5 g/dl (32-36); Mean Corpuscular Volume 86.6 fl (80-100); Mean Platelet Volume 9.3 fl (7.4-10.4); Monocytes Absolute Auto 0.8 K/mm3 (0.1-0.6); Monocytes Percent Auto 8.8 % (2.6-8.5); Neutrophils Absolute Auto 5.8 K/mm3 (1.3-6.7); Neutrophils Percent Auto 61.2 % (45.5-73.1); Platelet Count Result 243 k/mm3 (150-375); Red Blood Count 4.34 M/mm3 (4.2-5.4); Red Cell Distribution Width 14.9 % (11.5-14.5); White Blood Count 9.5 K/mm3 (4.5-10.0)
--- NOTE | 2023-04-27 03:32 | ED.CHESTPAIN ---
HPI - Chest Pain General Chief Complaint: Chest Pain Stated Complaint: chest pain Time Seen by Provider: 04/27/23 03:04 History of Present Illness HPI narrative: Patient presents to the emergency department with sensation of inability to get a full breath. She started having chest discomfort that was worse with movement shortly after her shortness of breath. She has a history of congestive heart failure but does not have any cardiac stents placed. She started having bilateral lower extremity swelling a couple weeks ago and this has improved. She is seeing her fiberglass fabricator tomorrow as a result. She is very pleasant and exam is grossly benign other than some mild lower extremity edema. Currently denies chest pain. Related Data Home Medications Medication Instructions Recorded Confirmed B-complex with vitamin C (Super B 1 tablet PO DAILY 02/15/20 02/12/23 Complex-Vitamin C tablet) allopurinol 300 mg tablet 300 mg PO DAILY 02/15/20 02/12/23 aspirin 81 mg tablet,delayed 81 mg PO DAILY 02/15/20 02/12/23 release (Adult Aspirin Regimen) carvedilol 25 mg tablet 25 mg PO DAILY 02/15/20 02/12/23 colesevelam 625 mg tablet (WelChol) 1,250 mg PO BID 02/15/20 02/12/23 enalapril maleate 20 mg tablet 20 mg PO BID 02/15/20 02/12/23 ergocalciferol (vitamin D2) 1,250 1,250 mcg PO MONTHLY 02/15/20 02/12/23 mcg (50,000 unit) capsule ezetimibe 10 mg tablet 10 mg PO DAILY 02/15/20 02/12/23 triamterene 37.5 1 cap PO DAILY 02/15/20 02/12/23 mg-hydrochlorothiazide 25 mg capsule empagliflozin 10 mg tablet 10 mg PO DAILY 12/13/20 02/12/23 (Jardiance) insulin lispro 200 unit/mL (3 mL) See Rx Instructions .Route .COMPLEX 12/13/20 02/12/23 subcutaneous pen (Humalog KwikPen U-200 Insulin) colesevelam 625 mg tablet (WelChol) 1,250 mg PO BID 04/05/23 04/05/23 ezetimibe 10 mg tablet 10 mg PO DAILY 04/05/23 04/05/23 Allergies Allergy/AdvReac Type Severity Reaction Status Date / Time metformin Allergy Severe Diarrhea Verified 02/12/23 08:32 pioglitazone Allergy Severe CHF Verified 02/12/23 08:32 atorvastatin Allergy Intermediate Rash Verified 02/12/23 08:32 rosuvastatin Allergy Intermediate Muscle Pain Verified 02/12/23 08:32 tramadol [From Ultram] Allergy Rash Verified 02/12/23 08:32 Review of Systems Review of Systems: Review of systems negative except what is documented in the [facility] Past Medical History Medical History CKD (chronic kidney disease) COPD (chronic obstructive pulmonary disease) Decreased diffusion capacity Diabetes Dysphagia Essential (primary) hypertension ERIN (obstructive sleep apnea) Restrictive lung disease Rhinitis Surgical History Surgical History Status post cataract extraction Left Family History Family History Mother Patient's mother is in good health Other Diabetes mellitus Family history of malignant neoplasm of breast Hypertension Social History Social History Smoking status: Never smoker Alcohol intake: current Substance use: never Substance use type: does not use Lack of Transportation: No Lack of Food: Never True Current Housing: I Have Housing Concerned About Future Housing: No Difficulty Paying Gas/Electric Bills: No Difficulty Paying for Meds: No Currently Unemployed: No Education: Bachelor's Degree Difficulty w/ Childcare or Family Care: No Living arrangements: with family Gender identity (if verbalized by the patient): Female Spiritual care concerns: No Exam Narrative: GENERAL: Well-appearing, well-nourished, and in no acute distress. HEAD: Normocephalic, atraumatic. EYES: PERRLA and EOMI. ENT: Nares clear, no rhinorrhea or epistaxis. Mucous membranes moist. NECK: Supple. CHEST: Clear to auscultat
[2023-04-27 03:41] LABS: INR 0.9; Prothrombin Time 12.9 Seconds (11.1-14.7)
[2023-04-27 03:42] LABS: Partial Thromboplastin Time 29.2 SECONDS (22.3-36.8)
[2023-04-27 03:51] LABS: Troponin I 0.015 ng/mL (0.000-0.034)
[2023-04-27 05:13] LABS: Appearance Urine Clear (Clear); Bilirubin Urine Negative (Negative); Blood Urine Trace-intact (Negative); Color Urine Yellow (Yellow); Glucose Urine UA 3+ mg/dL (Negative); Ketones Urine Negative (Negative); Leukocyte Esterase Ur Trace LEU/UL (Negative); Nitrate Urine Positive (Negative); Protein Urine Negative (Negative); Urobilinogen Urine 0.2 mg/dL (<2.0); pH Urine 5.5 (5.0-9.0)
[2023-04-27 05:18] LABS: Bacteria Urine 4+ /hpf; Non Pathogenic Casts 0-2; RBC Urine 0-2 /hpf (0-2); Squamous Epithelial Cell Urine None seen /hpf (Few); WBC Urine 21-50 /hpf
[2023-04-27 05:41] LABS: Alanine Aminotransferase 47 U/L (6-35); Alkaline Phosphatase 76 U/L (38-126); Anion Gap 6 mmol/L (8-16); Aspartate Amino Transferase 48 U/L (14-36); Bilirubin,Total 0.7 mg/dL (0.2-1.3); Blood Urea Nitrogen 23 mg/dL (7-17); Calcium 8.4 mg/dL (8.4-10.2); Carbon Dioxide 28 mmol/L (22-30); Chloride 106 mmol/L (98-107); Estimated CRCL calculation 56 ml/min; Estimated Glomerular Filt Rate 60; Glucose 201 mg/dL (65-110); Potassium 3.1 mmol/L (3.4-5.0); Sodium 140 mmol/L (137-145)
[2023-04-27 05:50] LABS: NT Pro B Type Natriuretic Pept 267 pg/mL (19.9-100)
[2023-04-27 05:55] LABS: Add Urine Microscopic? YES
[2023-04-27 06:47] LABS: Troponin I 0.018 ng/mL (0.000-0.034)
== END 2023-04-27 07:45 | disposition home or self-care (01) ==
PROVIDERS: Emergency Provider Emergency Medicine; PCP Family Medicine
DX: R07.9 Chest pain, unspecified (principal); R06.02 Shortness of breath; I12.9 Hypertensive chronic kidney disease with stage 1 through stage 4 chronic kidney disease, or unspecified chronic kidney disease; E11.22 Type 2 diabetes mellitus with diabetic chronic kidney disease; N18.9 Chronic kidney disease, unspecified; Z79.4 Long term (current) use of insulin; J44.9 Chronic obstructive pulmonary disease, unspecified; G47.30 Sleep apnea, unspecified; R82.90 Unspecified abnormal findings in urine
CPT/HCPCS: 36415; 71045; 80053; 81001; 83880; 84484; 85025; 85610; 85730; 87077; 87086; 87186; 93005; 99284; A9270

== ENCOUNTER 2023-06-15 14:36 | Outpatient (CLI) | payer MEDICARE, SELFPAY ==
--- NOTE | ~2023-06-15 | DEXA_ITS ---
Bone Density Report Name: MC MCCLAIN Age: 67 Sex: Female Ethnicity: Black Date of : 1955 Indication: postmenopausal; screening for osteoporosis; height loss; hysterectomy; Referring Provider: HUGH GA Study: Bone densitometry was performed. Exam Date: June 15, 2023 Accession number: [id number] Bone Density: Region BMD T-score Z-score Classification AP Spine(L1-L4) 1.258 1.9 3.3 Normal Femoral Neck (Left) 1.034 1.7 2.0 Normal Total Hip (Left) 1.054 0.9 1.3 Normal Femoral Neck (Right) 1.094 2.2 2.4 Normal Total Hip (Right) 1.089 1.2 1.5 Normal Total Hip Mean 1.072 1.1 1.4 Normal World Health Organization criteria for BMD impression classify patients as: Normal (T-score at or above -1.0), Osteopenia (T-score between -1.0 and -2.5), or Osteoporosis (T-score at or below -2.5). 10-year Fracture Risk: FRAX not reported because: All T-scores for Spine Total, Hip Total, Femoral Neck at or above -1.0 Previous Exams: Region Exam Age BMD T-score BMD Change BMD Change Date g/cm2 vs Baseline vs Previous AP Spine (L1-L4) 06/15/2023 67 1.258 1.9 0.097 (8.4%)* 0.168 (15.4%)* 02/09/2020 64 1.090 0.4 -0.071 (-6.1%) -0.071 (-6.1%) 01/10/2015 59 1.161 1.0 Total Hip(Left) 06/15/2023 67 1.054 0.9 0.042 (4.2%)* 0.024 (2.4%) 02/09/2020 64 1.030 0.7 0.018 (1.8%) 0.018 (1.8%) 01/10/2015 59 1.012 0.6 Total Hip(Right) 06/15/2023 67 1.089 1.2 0.025 (2.3%) -0.016 (-1.5%) 02/09/2020 64 1.106 1.3 0.041 (3.9%)* 0.041 (3.9%)* 01/10/2015 59 1.064 1.0 *Denotes significance at 95% confidence level, LSC for AP Spine = 0.022 g/cm2, LSC for Total Hip = 0.027 g/cm2 Clinical Information Provided by Patient: Has used the following medications: Vitamin D Has the following medical conditions: Hysterectomy Patient maximum height was 69 Menopause Age: 43 Drinks caffeinated beverages Onset of menses at age 10 Number of children 3 Impression: The patient has normal bone mass. No significant bone loss was observed. Discussion: BONE DENSITY IS ABOVE THE MINIMUM DESIRABLE LEVEL AT ALL SKELETAL SITES TESTED. This patient?s bone mineral density is above the minimum desirable level (T-score -1.0 or better) at all sites measured. The patient should follow a healthful lifestyle (good nutrition with adequate calcium and vitamin D, and appropriate weight-bearing exercise).
--- NOTE | ~2023-06-15 | MM_ITS ---
EXAMINATION: MM screening carlo BI w jc HISTORY: Screening mammogram TECHNIQUE: Craniocaudal and mediolateral oblique 3-D tomosynthesis images were obtained and synthetic 2-D images were generated. CAD analysis was submitted and interpreted. COMPARISON: 03/13/2022, 02/10/2021, 02/05/2020 bilateral screening mammogram examinations BREAST PARENCHYMAL COMPOSITION: There are scattered areas of fibroglandular density. FINDINGS: There is no evidence of suspicious mass, calcification, or architectural distortion to sugg est malignancy in either breast. There has been no suspicious interval change. IMPRESSION: 1. No mammographic evidence of malignancy. 2. Recommend routine screening mammography in one year. BI-RADS Category 1: Negative Reviewed, dictated and finalized at location A. [employer]
== END 2023-06-15 14:37 | disposition home or self-care (01) ==
PROVIDERS: PCP Family Medicine; Visit Provider Obstetrics & Gynecology Gynecology
DX: Z12.31 Encounter for screening mammogram for malignant neoplasm of breast (principal); Z78.0 Asymptomatic menopausal state
CPT/HCPCS: 77063; 77067; 77080

== ENCOUNTER 2024-09-14 15:51 | Outpatient (CLI) | payer MEDICARE, SELFPAY | END 2024-09-14 15:52 | disposition home or self-care (01) | LOC: ANHIMG 15:52 | PROVIDERS: PCP Family Medicine; Visit Provider Nurse Practitioner Women's Health | DX: Z12.31 Encounter for screening mammogram for malignant neoplasm of breast (principal) | CPT/HCPCS: 77063; 77067 ==